=== PATIENT | female | born 1960 | race Caucasian/White ===

== ENCOUNTER → 2018-03-17 13:44 | Outpatient (CLI) | payer BC | END | disposition home or self-care (01) | LOC: D.MRI 13:44 | DX: R51 Headache (principal) ==

== ENCOUNTER → 2018-07-03 16:22 | Outpatient (CLI) | payer BC | END | disposition home or self-care (01) | LOC: D.MRI 16:00 | DX: M23.306 Other meniscus derangements, unspecified meniscus, right knee (principal) ==

== ENCOUNTER 2018-08-19 08:10 | Day surgery (SDC) | payer BC ==
[2018-08-14 09:47] LABS: BASOPHILS 0.2 % (0-2); HEMATOCRIT 42.5 % (36.0-48.0); HEMOGLOBIN 14.6 g/dL (12-16); LYMPHOCYTES 25.4 % (15-50); MCH 30.4 pg (26.0-34.0); MCHC 34.4 g/dL (31.0-37.0); MCV 88.4 fL (80.0-100.0); MEAN PLATELET VOLUME 10.5 fL (7.4-10.4); MONOCYTES 7.6 % (2-11); NEUTROPHILS 61.8 % (40-80); PLATELET COUNT 196 10x3/uL (130-400); RBC 4.81 10x6/uL (4.00-5.40); RDW 12.9 % (11.5-14.5); WBC 5.2 10x3/uL (4.8-10.8)
[2018-08-14 09:55] LABS: CALC OSMOLALITY 285 mosm/kg (275-300); CALCIUM 8.5 mg/dL (8.5-10.1); CARBON DIOXIDE 27.3 mmol/L (21.0-32.0); CHLORIDE - SERUM 107 mmol/L (98-107); CREATININE - SERUM 0.7 mg/dL (0.6-1.3); GLUCOSE 91 mg/dL (74-106); POTASSIUM - SERUM 4.2 mmol/L (3.5-5.1); SODIUM 143 mmol/L (136-145); UREA NITROGEN 15 mg/dL (7-18); eGFR NON AFRICAN AMERICAN > 90 mL/min (90-120)
[~2018-08-19] VITALS: Ht 162.6 cm; Wt 99.8 kg
[2018-08-19] MEDS ORDERED: ZOVIRAX800 MG (08:56)
[2018-08-19] MEDS ORDERED: APLENZIN348 MG PO (08:56)
[2018-08-19] MEDS ORDERED: OXYBUTYNIN CHLOR5 MG (08:57)
[2018-08-19] MEDS ORDERED: NULEV0.125 MG (08:57)
[2018-08-19 09:10] VITALS: BP 139/70; Ht 162.6 cm; Wt 99.8 kg
[2018-08-19 09:39] LABS: HCG URINE NEGATIVE (NEGATIVE)
--- NOTE | 2018-08-19 16:46 | NUR ---
1635 DC INSTS GIVEN, VOICED UNDERSTANDING RELEASED IN SPOUSE FLOOR [facility].
== END 2018-08-19 16:40 | disposition home or self-care (01) ==
LOC: D.OPS 08:10
PROVIDERS: Orthopaedic Surgery
DX: S83.241A Other tear of medial meniscus, current injury, right knee, initial encounter (principal); M94.261 Chondromalacia, right knee; M25.861 Other specified joint disorders, right knee; M84.461A Pathological fracture, right tibia, initial encounter for fracture; X58.XXXA Exposure to other specified factors, initial encounter; Z79.52 Long term (current) use of systemic steroids; Z79.1 Long term (current) use of non-steroidal anti-inflammatories (NSAID); Z79.899 Other long term (current) drug therapy